=== PATIENT | male | born 1950 | race Caucasian/White ===

== ENCOUNTER → 2016-04-19 | Day surgery (SDC) | payer OTHER ==
[~2016-04-19] VITALS: Ht 177.8 cm; Wt 90.7 kg
[~2016-04-19] MED LIST: ACETAMINOPHEN 1000 MG/100 ML VIAL IV ONE; ACETAMINOPHEN 1000 MG/100 ML VIAL IV SCH; BEDSIDE COMMODE1 MI1; BUPIVACAINE/EPINEPHRINE 0.5% PF 30 ML VIAL INFIL ONE; CPMMACHINE; DO NOT ADM ANY ANTICOAGULANT DRUGS XX PRN; KETOROLAC TROMETHAMINE 30 MG/ML (IVP) VIAL IV PUSH ONE; KETOROLAC TROMETHAMINE 60 MG/2 ML (IM) VIAL IM ONE; LACTATED RINGER'S 1000 ML INJ 1,000 ML IV ONE; LACTATED RINGER'S 1000 ML INJ 1,000 ML ONE; MIDAZOLAM HCL 5 MG/5 ML VIAL ONE; MORPHINE SULFATE 4 MG/ML INJ IV PRN; NEOSTIGMINE 3 MG/3 ML SYR IV ONE; ONDANSETRON HCL 4 MG/2 ML VIAL IV PRN; ONDANSETRON HCL 4 MG/2 ML VIAL IV PUSH ONE; PROPOFOL 200 MG/20 ML AMP IV ONE; WALKER WHEELS/F1 MIS; ceFAZolin 2 GM PREMIX 50 ML IV SCH; ceFAZolin 2 GM PREMIX 50 ML ONE; ePHEDrine/NS 25 MG/5 ML SYR IV ONE; fentaNYL CITRATE 250 MCG/5 ML AMP ONE; oxyCODONE/ACETAMINOPHEN 5 MG/325 MG TAB PO PRN
[2016-04-19 07:14] VITALS: BP 145/92; PULSE 69; RESP 18; TEMP 98.6; O2SAT 98
--- NOTE | 2016-04-19 11:16 | PD.OP ---
cc: Caleb Hernandez MD; Bipin Kimble MD Operative Report Date of Surgery: Apr 19, 2016 Preoperative Diagnosis: Recurrent ventral incisional hernia and umbilical hernia Postoperative Diagnosis: Recurrent ventral incisional hernia and umbilical hernia Procedure: Laparoscopic repair of recurrent ventral incisional hernia and umbilical hernia with ventral light ST mesh Anesthesia: Gen. endotracheal Surgeon: Caleb Hernandez Audiology Technician(s): Lynda Jack CFA Operation and Findings: Operative findings: The patient was found to have a 4-5 cm recurrent ventral incisional hernia which was just to the right of the midline and several centimeters above the umbilicus. He was also found to have a 2 cm umbilical hernia. There was a large piece of omentum which was chronically incarcerated into the ventral hernia but no other abnormalities were noted. Operative procedure: The patient brought to the operating room after having undergone placement of a TA P block in preop holding. After satisfactory general endotracheal anesthesia was obtained, the abdomen was prepped and draped in usual sterile fashion. An Ioban drape was placed across the abdomen. 0.5% Marcaine with epinephrine was used to infiltrate the skin for local anesthesia. A's 2 cm incision was made just below the left costal margin. Using blunt dissection the fascia was divided with a hemostat and the peritoneal cavity was entered bluntly with care being taken not to injure the underlying viscera. The 12 mm port was placed in the peritoneal cavity and the balloon engaged. The abdomen was insufflated to 15 mmHg using carbon dioxide. The camera was reinserted and visceral injury inspected for, with none being identified. Under direct visualization 5 mm ports were placed in the right upper right lower and left lower quadrants respectively all under direct visualization. The omentum was seen to be incarcerated as noted above and was taken down with the Harmonic scalpel without problem. The peritoneal surface was then cleaned of fat using the harmonic scalpel as well. The phallus warm ligament was taken down partially fpc to the diaphragm, again with a Harmonic scalpel. Hemostasis was checked for all areas of dissection. At that point the peritoneal surface was seen to be clean of any fat and it was decided to use a 15 x 20 cm piece of ventral light ST. The mesh was rolled up for its backbone and inserted through the 12 mm port. It was then unfurled and a small defect was created just between the 2 hernias and using a [place] suture passer, the insufflation tubing was brought externally. The backbone of the mesh was insufflated with air and is brought into close approximation to the abdominal wall where it was clamped with a hemostat. The mesh was then oriented properly to obtain good coverage over both hernias. Using pro-tacks, the mesh was tacked into place circumferentially after which the mesh backbone was removed. The remainder of the mesh was brought into close approximation with the anterior abdominal wall using absorbable tacks. After completion of the repair, hemostasis was checked for and found be satisfactory. The mesh was seen to be in close proximal patient in all areas with no billowing noted. After checked for hemostasis once again, which was seen to be satisfactory, the carbon dioxide was vented as completely as possible the atmosphere. The ports were removed and the 12 mm fascial defect closed with interrupted 0 Vicryl sutures. Skin was closed with interrupted 4-0 Monocryl subcuticular stitches. Steri-Strips were applied and the patient then awakened and taken from the operating room, in satisfactory condition, having tolerated procedure without problem. Estimated blood loss was less than 5 mL' s. The answer, sponge, needle counts reported as being correct 2 at the end of procedure. Caleb Hernandez MD Apr 19, 2016 11:16
[2016-04-19 12:45] VITALS: BP 124/78; PULSE 65; RESP 16; TEMP 98; O2SAT 96
== END | disposition home or self-care (01) ==
LOC: HSDC 06:21
PROVIDERS: ATTEND Surgery
DX: K43.2 Incisional hernia without obstruction or gangrene (principal); K42.9 Umbilical hernia without obstruction or gangrene
CPT/HCPCS: 00752; 49656; C1781; J1885; J2250; J2405; J2710; J3010; J7120; J0131; J0690

== ENCOUNTER 2016-08-12 09:49 | Inpatient (IN) | payer MEDICARE ==
[~2016-08-12] VITALS: Ht 179.6 cm; Wt 93.0 kg
[2016-08-15] MEDS ORDERED: BUPIVACAINE LIPOSOME PF 1.3% 20 ML VIAL ONE (07:50)
[2016-08-15] MEDS ORDERED: GENTAMICIN SULFATE 80 MG/2 ML VIAL ONE (09:50)
[2016-08-15 10:23] VITALS: BP 133/85; PULSE 69; RESP 16; TEMP 99.1; O2SAT 98
[2016-08-15] MEDS ORDERED: METOPROLOL TARTRATE 25 MG TAB PO PRN (11:00)
[2016-08-15] MEDS ORDERED: LACTATED RINGER'S 1000 ML IV PRN (11:00)
[2016-08-15] MEDS ORDERED: SODIUM CHLORID 0.9% 500 ML IV PRN (11:00)
[2016-08-15] MEDS ORDERED: VANCOMYCIN 1000 MG/NS 250 ML (for <70 kg) IV SCH ×2 (11:00)
[2016-08-15] MEDS ORDERED: POVIDONE IODINE 5% (ANTISEPSIS KIT) 4 APPLICATIONS EACH NARE PRN (11:00)
[2016-08-15] MEDS ORDERED: ceFAZolin 2 GM PREMIX 50 ML IV SCH (11:00)
[2016-08-15] MEDS ORDERED: CHLORHEXIDINE GLUCONATE 2 % 1 PACK (2 CLOTHS) TOPICAL PRN (11:00)
[2016-08-15] MEDS ORDERED: INSULIN HUMAN REGULAR 1,000 UNITS/10 ML VIAL SQ PRN (11:00)
[2016-08-15] MEDS ORDERED: ROPIVACAINE PERI-ARTICULAR INJECTION. P-ARTICULR SCH ×5 (11:00)
[2016-08-15] MEDS ORDERED: CHLORHEXIDINE GLUCONATE 4% SOLN 120 ML BTL TOPICAL SCH (11:00)
[2016-08-15] MEDS ORDERED: ePHEDrine/NS 25 MG/5 ML SYR IV ONE (12:00)
[2016-08-15] MEDS ORDERED: ONDANSETRON HCL 4 MG/2 ML VIAL IV PUSH ONE (12:00)
[2016-08-15] MEDS ORDERED: LACTATED RINGER'S 1000 ML INJ 1,000 ML IV ONE (12:00)
[2016-08-15] MEDS ORDERED: PROPOFOL 200 MG/20 ML AMP IV ONE (12:00)
[2016-08-15] MEDS ORDERED: PHENYLEPH/NS 1000 MCG/10 ML SYR IV ONE (12:00)
[2016-08-15] MEDS ORDERED: MIDAZOLAM HCL 2 MG/2 ML VIAL ONE ×2 (12:28→14:51)
[2016-08-15] MEDS ORDERED: FAMOTIDINE 20 MG/2 ML VIAL ONE (12:28)
[2016-08-15] MEDS: LACTATED RINGER'S 1000 ML INJ 1,000 ML IV SCH (14:41)
[2016-08-15] MEDS ORDERED: MORPHINE SULFATE 8 MG/ML INJ IM PRN (14:45)
[2016-08-15] MEDS ORDERED: ZOLPIDEM TARTRATE 5 MG TAB PO PRN (14:45)
[2016-08-15] MEDS ORDERED: ONDANSETRON HCL 4 MG/2 ML VIAL IVP PRN (14:45)
[2016-08-15] MEDS ORDERED: ACETAMINOPHEN/HYDROcodone 325 MG/7.5 MG TAB PO PRN ×2 (14:45)
[2016-08-15] MEDS: SODIUM CHLORIDE 0.9% FLUSH 5 ML FLUSH IVF SCH ×2 (14:45→21:00)
[2016-08-15] MEDS ORDERED: Post-op Orders (for Pharmacy) MISC XX ONE (14:45)
[2016-08-15] MEDS ORDERED: SODIUM CHLORIDE 0.9% FLUSH 5 ML FLUSH IVF PRN (14:45)
[2016-08-15] MEDS ORDERED: ALUMINUM/MAGNESIUM/SIMETH 30 ML CUP PO PRN (14:45)
[2016-08-15] MEDS ORDERED: WALKER WHEELS/F1 MIS (14:47)
[2016-08-15] MEDS ORDERED: *morphine SULFATE 8 MG/ML PERIprocedure ONLY ONE ×2 (14:47→14:54)
[2016-08-15] MEDS ORDERED: BEDSIDE COMMODE1 MI1 (14:48)
[2016-08-15] MEDS ORDERED: CPMMACHINE (14:48)
[2016-08-15] MEDS ORDERED: fentaNYL CITRATE 250 MCG/5 ML AMP ONE (14:51)
--- NOTE | 2016-08-15 14:53 | HHI.PR ---
Immediate Post Op Note Procedure Date: Aug 15, 2016 Pre Op Diagnosis: L Knee OA Post Op Diagnosis: Same Surgeon: Jonathon Cameron MD Inspector Returned Materials(s): Valeria Stoner PA-C Procedure: L TKR Complications: None Estimated blood loss: 25 cc Anesthesia: General, Regional Block, Local Drains: Hemovac Patient to: PACU Patient Condition: Good Implant/Devices: SEE IMPLANT LOG (if applicable) Date/Time of Procedure: SEE SURGICAL CARE RECORD Jonathon Cameron MD Aug 15, 2016 14:53
[2016-08-15] MEDS ORDERED: DO NOT ADM ANY ANTICOAGULANT DRUGS PRN (15:00)
[2016-08-15 16:00] VITALS: BP 127/78; PULSE 70; RESP 18; TEMP 96.7; O2SAT 98
--- NOTE | 2016-08-15 16:59 | RADRPT ---
EXAM DATE/TIME: 08/15/2016 14:55 [facility] COMPARISON: No previous studies available for comparison. INDICATIONS : Post op, left knee. MEDICAL HISTORY : None. SURGICAL HISTORY : Total knee replacement, left. ENCOUNTER: Initial ACUITY: 1 day PAIN SCORE: Non-responsive. LOCATION: Left knee FINDINGS: Postsurgical features of left knee arthroplasty. Arthroplasty components are in anatomic alignment. O sseous structures appear intact without significant acute bony fracture. Post surgical soft tissue ch anges are noted. There are surgical drains in place. CONCLUSION: 1. Status post left knee arthroplasty in anatomic alignment without significant acute fracture. Raymond Mcdermott MD on August 15, 2016 at 16:56 Board Certified Radiologist. This report was verified electronically.
[2016-08-15 20:10] VITALS: BP 119/60; PULSE 56; RESP 18; TEMP 97.3; O2SAT 99
[2016-08-15] MEDS ORDERED: chlorproMAZINE HCL 25 MG TAB PO PRN (22:30)
[2016-08-16] VITALS (7 sets, daily range): BP systolic 97–138; BP diastolic 62–76; PULSE 63–77; RESP 17–18; TEMP 97.5–99.8; O2SAT 95–98
[2016-08-16] MEDS: LACTATED RINGER'S 1000 ML INJ 1,000 ML IV SCH ×2 (05:24→15:41)
[2016-08-16 06:21] LABS: INTERNATIONAL NORMALIZED RATIO 1.2 RATIO; PROTHROMBIN TIME - PATIENT 13.1 SEC (9.8-11.6)
[2016-08-16] MEDS: SODIUM CHLORIDE 0.9% FLUSH 5 ML FLUSH IVF SCH (09:00)
--- NOTE | 2016-08-16 11:28 | MP ---
cc: ARNULFO CAMERON M.D.,FELICIA Cortes MD DATE OF OPERATION August 15, 2016 PREOPERATIVE DIAGNOSIS Left knee severe tricompartmental osteoarthritis. POSTOPERATIVE DIAGNOSIS Left knee severe tricompartmental osteoarthritis. PROCEDURE Left total knee arthroplasty - cemented Biomet Vanguard. SURGEON Beata Cameron MD ASSESSMENT Valeria Stoner PA-C SPECIMEN None. ESTIMATED BLOOD LOSS 25 cc COMPLICATIONS None. ANESTHESIA General, regional adductor canal block, intraarticular local. DRAINS Two. TOURNIQUET TIME 57 minutes at 250 mmHg. CONDITION Stable. PLAN OF ACTIVITY As per orders. PROCEDURE My promotions assistant Valeria Stoner PA-C, was present for the entire surgical case. She was medically necessary for the entire case because of the complexity of the case and to facilitate the performance of the procedure. The SALES SERVICE SUPERVISOR at the back table was not of the skill set for this case, to manipulate the instruments e.g. the multiple different types of soft tissue retractors, trial implants and permanent implants including bone cement. The patient was brought into the operating room and had satisfactory adductor canal regional anesthesia, followed by general anesthesia by the anesthesiologist. The left lower extremity was prepped and draped in the usual sterile manner. The extremity was exsanguinated by elevation and the tourniquet was inflated to 250 mmHg. Tourniquet time was equal to 57 minutes. A small anterior medial exposure to the knee was made. A paramedian capsulotomy was performed. The patient was found to have a moderate degree of synovitis. The patient was found to have severe tricompartmental osteoarthritis. The remaining portion of the medial and lateral meniscus were removed. The anterior cruciate ligament was removed. The posterior cruciate ligament was preserved. The prepatellar fat pad was excised. Using the Biomet Vanguard total knee arthroplasty system, IM guide was used in the distal femur to a 5-degree valgus cut to accept a 70-mm femoral component. Extramedullary guide was used for the proximal tibia to accept a 79-mm tibial component. The undersurface of the patella was removed to accept a 34-mm three-pronged patellar prosthesis. Trial reduction was made with a 12-mm insert. The patient was found to have excellent balance in both flexion and extension. All trial components were removed and preparation for the cementing was made. Two packages of Biomet Palacos cement was used. First the tibial component was cemented which is a 79-mm tibial component, followed by the femoral component which was a 30-mm left femoral component. The undersurface of the patella was also cemented which was a 34-mm, three-pronged patellar prosthesis. All excess bone cement was removed. The bone cement was allowed to harden for 12 minutes. A 12 x 39 polyethylene plastic was then assembled onto the tibial tray with appropriate clipping mechanism. The tourniquet was deflated. The wound itself was dry. The wound was irrigated with 4000 cc of sterile saline antibiotic solution using the Water Pik irrigation system. The knee itself was injected with local anesthesia provided by the Department of Pharmacy. The wound was closed over two 1/8-inch Hemovac drains hooked up to an Autovac system. The capsule and extensor mechanism were repaired using multiple interrupted #2 Ticron sutures, the subcutaneous and subcuticular layers with 0 Vicryl and 2-0 Vicryl, the skin approximated with skin kenna. Sterile dressing was applied. The patient tolerated the procedure well and arrived in the recovery room in stable and satisfactory condition. MD ARCADIO Eduardo/SSB /2:41 PM /11:15 AM
[2016-08-16] MEDS ORDERED: WARFARIN SOD 5 MG TAB PO SCH (16:00)
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
== END 2016-08-16 18:30 | disposition home or self-care (01) | DRG 470 ==
LOC: HSDI 08-15 10:12 → EDSTATUS 08-15 12:30 → N06A 08-15 15:53
PROVIDERS: ADMIT Orthopaedic Surgery Orthopaedic Surgery of the Spine; ATTEND Orthopaedic Surgery Orthopaedic Surgery of the Spine
PROC: 3E0T3CZ (ICD-10-PCS; 2016-08-15)
PROC: 0SRD0J9 Replacement of Left Knee Joint with Synthetic Substitute, Cemented, Open Approach (ICD-10-PCS; principal; 2016-08-15 12:30)
DX: M17.12 Unilateral primary osteoarthritis, left knee (principal); M65.9 Synovitis and tenosynovitis, unspecified
CPT/HCPCS: 73560; 85610; 86077; 86850; 86870; 86900; 86901; 86902; 86920; 86922; 94150; C1776; C9290; J0171; J0690; J0735; J1580; J1885; J2250; J2270; J2370; J2405; J2795; J3010; J3370; J7050; J7120; L1830